=== PATIENT | male | born 1965 | race African-American/Black ===

== ENCOUNTER 2022-03-16 09:43 | Outpatient (REF) | payer OTHER, SELFPAY ==
[2022-03-16 11:05] LABS: Estimated Glomerular Filt Rate > 60; Uric Acid 6.7 mg/dL (3.4-7.0)
== END 2022-03-16 09:44 | disposition home or self-care (01) ==
LOC: HO.10HDL 09:43
PROVIDERS: Visit Provider Internal Medicine Rheumatology
DX: M10.9 Gout, unspecified (principal)
CPT/HCPCS: 36415; 82565; 84550